=== PATIENT | female | born 1965 | race Caucasian/White ===

== ENCOUNTER 2016-08-14 06:38 | Outpatient (CLI) | payer BC, OTHER | END 2016-08-14 06:39 | disposition home or self-care (01) | LOC: LAB.R 06:38 | PROVIDERS: ATTEND Family Medicine | DX: N39.0 Urinary tract infection, site not specified (principal) | CPT/HCPCS: 87077; 87086 ==

== ENCOUNTER 2016-08-16 12:17 | Outpatient (CLI) | payer BC | END 2016-08-16 12:18 | disposition home or self-care (01) | LOC: LAB 12:17 | PROVIDERS: ATTEND Family Medicine | DX: E55.9 Vitamin D deficiency, unspecified (principal) | CPT/HCPCS: 36415; 82306; 87086 ==

== ENCOUNTER 2016-10-29 12:07 | Outpatient (CLI) | payer BC ==
[2016-10-29 12:19] LABS: BASOPHILS % (AUTO) 0.4 %; EOSINOPHILS # (AUTO) 0.3 10^3/uL (0.0-0.7); EOSINOPHILS % (AUTO) 2.9 %; HCT - HEMATOCRIT 36.1 % (37.0-47.0); LYMPHOCYTES # (AUTO) 2.8 10^3/uL (1.5-3.5); LYMPHOCYTES % (AUTO) 30.3 %; MEAN CORPUSCULAR HEMOGLOBIN 28.4 pg (27.0-31.0); MEAN CORPUSCULAR HGB CONC 33.3 g/dL (32.0-36.0); MEAN CORPUSCULAR VOLUME 85.2 fL (81.0-99.0); MEAN PLATELET VOLUME 7.2 fL (7.9-10.8); MONOCYTES # (AUTO) 0.6 10^3/uL (0.0-1.0); MONOCYTES % (AUTO) 6.5 %; NEUTROPHILS # (AUTO) 5.5 10^3/uL (1.5-6.6); NEUTROPHILS % (AUTO) 59.9 %; NUCLEATED RED BLOOD CELLS AUTO 0.1 /100WBC; RED BLOOD COUNT 4.24 10^6/uL (4.20-5.40); RED CELL DISTRIBUTION WIDTH 14.3 % (12.0-15.0); UNCORRECTED WHITE BLOOD COUNT 9.2 x10^3/uL; WHITE BLOOD COUNT 9.2 x10^3/uL (4.8-10.8)
[2016-10-29 12:36] LABS: ALBUMIN/GLOBULIN RATIO 1.2 (1.0-2.2); BILIRUBIN,TOTAL 0.9 mg/dL (0.2-1.0); CALCIUM 9.8 mg/dL (8.5-10.3); CREATININE 0.9 mg/dL (0.4-1.0); POTASSIUM 4.2 mmol/L (3.5-5.0); TOTAL PROTEIN 7.6 g/dL (6.7-8.2)
== END 2016-10-29 12:08 | disposition home or self-care (01) ==
LOC: LAB 12:07
PROVIDERS: ATTEND Physician Assistant Medical
DX: R11.0 Nausea (principal); R06.02 Shortness of breath
CPT/HCPCS: 36415; 80053; 83690; 84484; 85025; 85379

== ENCOUNTER 2017-01-28 10:05 | Outpatient (CLI) | payer BC ==
[2017-01-28 10:42] LABS: INR 1.5 (0.8-1.2); PT - PROTHROMBIN TIME 16.7 secs (9.9-12.6)
== END 2017-01-28 10:06 | disposition home or self-care (01) ==
LOC: LAB 10:05
PROVIDERS: ATTEND Family Medicine Sports Medicine
DX: I82.432 Acute embolism and thrombosis of left popliteal vein (principal)
CPT/HCPCS: 36415; 85610

== ENCOUNTER 2017-01-31 07:43 | Outpatient (CLI) | payer BC | END 2017-01-31 07:44 | disposition home or self-care (01) | LOC: LAB 07:43 | PROVIDERS: ATTEND Family Medicine Sports Medicine | DX: I82.432 Acute embolism and thrombosis of left popliteal vein (principal) | CPT/HCPCS: 36415; 85610 ==

== ENCOUNTER 2017-02-01 07:47 | Outpatient (CLI) | payer BC ==
[2017-02-01 08:09] LABS: INR 2.1 (0.8-1.2); PT - PROTHROMBIN TIME 22.8 secs (9.9-12.6)
== END 2017-02-01 07:48 | disposition home or self-care (01) ==
LOC: LAB 07:47
PROVIDERS: ATTEND Family Medicine Sports Medicine
DX: I82.432 Acute embolism and thrombosis of left popliteal vein (principal)
CPT/HCPCS: 36415; 85610

== ENCOUNTER 2017-02-04 08:02 | Outpatient (CLI) | payer BC ==
[2017-02-04 09:04] LABS: INR 2.2 (0.8-1.2); PT - PROTHROMBIN TIME 24.4 secs (9.9-12.6)
== END 2017-02-04 08:03 | disposition home or self-care (01) ==
LOC: LAB 08:02
PROVIDERS: ATTEND Family Medicine Sports Medicine
DX: I82.432 Acute embolism and thrombosis of left popliteal vein (principal)
CPT/HCPCS: 36415; 85610

== ENCOUNTER 2017-02-08 07:52 | Outpatient (CLI) | payer BC ==
[2017-02-08 08:31] LABS: INR 2.4 (0.8-1.2); PT - PROTHROMBIN TIME 26.1 secs (9.9-12.6)
== END 2017-02-08 07:53 | disposition home or self-care (01) ==
LOC: LAB 07:52
PROVIDERS: ATTEND Family Medicine Sports Medicine
DX: I82.432 Acute embolism and thrombosis of left popliteal vein (principal)
CPT/HCPCS: 36415; 85610

== ENCOUNTER 2017-02-15 07:44 | Outpatient (CLI) | payer BC ==
[2017-02-15 08:01] LABS: INR 2.4 (0.8-1.2); PT - PROTHROMBIN TIME 26.2 secs (9.9-12.6)
== END 2017-02-15 07:45 | disposition home or self-care (01) ==
LOC: LAB 07:44
PROVIDERS: ATTEND Family Medicine Sports Medicine
DX: I82.432 Acute embolism and thrombosis of left popliteal vein (principal)
CPT/HCPCS: 36415; 85610

== ENCOUNTER 2017-02-18 10:10 | Outpatient (CLI) | payer BC ==
[2017-02-18 10:47] LABS: INR 2.5 (0.8-1.2); PT - PROTHROMBIN TIME 27.6 secs (9.9-12.6)
== END 2017-02-18 10:11 | disposition home or self-care (01) ==
LOC: LAB 10:10
PROVIDERS: ATTEND Family Medicine Sports Medicine
DX: I82.432 Acute embolism and thrombosis of left popliteal vein (principal)
CPT/HCPCS: 36415; 85610

== ENCOUNTER 2017-02-24 10:08 | Outpatient (CLI) | payer BC ==
[2017-02-24 10:31] LABS: INR 1.6 (0.8-1.2)
== END 2017-02-24 10:09 | disposition home or self-care (01) ==
LOC: LAB 10:08
PROVIDERS: ATTEND Family Medicine Sports Medicine
DX: I82.432 Acute embolism and thrombosis of left popliteal vein (principal)
CPT/HCPCS: 36415; 85610

== ENCOUNTER 2017-03-01 10:21 | Outpatient (CLI) | payer BC ==
[2017-03-01 10:55] LABS: INR 2.1 (0.8-1.2)
== END 2017-03-01 10:22 | disposition home or self-care (01) ==
LOC: LAB 10:21
PROVIDERS: ATTEND Family Medicine Sports Medicine
DX: I82.432 Acute embolism and thrombosis of left popliteal vein (principal)
CPT/HCPCS: 36415; 85610

== ENCOUNTER 2017-03-08 07:35 | Outpatient (CLI) | payer BC ==
[2017-03-08 08:09] LABS: INR 1.7 (0.8-1.2); PT - PROTHROMBIN TIME 18.5 secs (9.9-12.6)
== END 2017-03-08 07:36 | disposition home or self-care (01) ==
LOC: LAB 07:35
PROVIDERS: ATTEND Family Medicine Sports Medicine
DX: I82.432 Acute embolism and thrombosis of left popliteal vein (principal)
CPT/HCPCS: 36415; 85610

== ENCOUNTER 2017-03-15 10:39 | Outpatient (CLI) | payer BC ==
[2017-03-15 11:49] LABS: INR 2.1 (0.8-1.2); PT - PROTHROMBIN TIME 22.9 secs (9.9-12.6)
== END 2017-03-15 10:40 | disposition home or self-care (01) ==
LOC: LAB 10:39
PROVIDERS: ATTEND Family Medicine Sports Medicine
DX: I82.432 Acute embolism and thrombosis of left popliteal vein (principal)
CPT/HCPCS: 36415; 85610

== ENCOUNTER 2017-03-29 07:45 | Outpatient (CLI) | payer BC ==
[2017-03-29 08:27] LABS: INR 2.4 (0.8-1.2); PT - PROTHROMBIN TIME 26.3 secs (9.9-12.6)
== END 2017-03-29 07:46 | disposition home or self-care (01) ==
LOC: LAB 07:45
PROVIDERS: ATTEND Family Medicine Sports Medicine
DX: I82.432 Acute embolism and thrombosis of left popliteal vein (principal)
CPT/HCPCS: 36415; 85610

== ENCOUNTER 2017-05-18 11:49 | Outpatient (CLI) | payer BC | END 2017-05-18 11:50 | disposition home or self-care (01) | LOC: LAB 11:49 | PROVIDERS: ATTEND Family Medicine Sports Medicine | DX: I82.432 Acute embolism and thrombosis of left popliteal vein (principal) | CPT/HCPCS: 85610 ==

== ENCOUNTER 2017-05-25 15:15 | Outpatient (CLI) | payer BC | END 2017-05-25 15:16 | disposition home or self-care (01) | LOC: LAB 15:15 | PROVIDERS: ATTEND Family Medicine Sports Medicine | DX: I82.432 Acute embolism and thrombosis of left popliteal vein (principal) | CPT/HCPCS: 85610 ==

== ENCOUNTER 2017-06-01 12:11 | Outpatient (CLI) | payer BC | END 2017-06-01 12:12 | disposition home or self-care (01) | LOC: LAB 12:11 | PROVIDERS: ATTEND Family Medicine Sports Medicine | DX: I82.432 Acute embolism and thrombosis of left popliteal vein (principal) | CPT/HCPCS: 85610 ==

== ENCOUNTER 2017-06-09 16:43 | Outpatient (CLI) | payer BC | END 2017-06-09 16:44 | disposition home or self-care (01) | LOC: LAB 16:43 | PROVIDERS: ATTEND Family Medicine Sports Medicine | DX: I82.432 Acute embolism and thrombosis of left popliteal vein (principal) | CPT/HCPCS: 85610 ==

== ENCOUNTER 2017-06-22 12:11 | Outpatient (CLI) | payer BC | END 2017-06-22 12:12 | disposition home or self-care (01) | LOC: LAB 12:11 | PROVIDERS: ATTEND Family Medicine Sports Medicine | DX: I82.432 Acute embolism and thrombosis of left popliteal vein (principal) | CPT/HCPCS: 85610 ==

== ENCOUNTER 2017-07-11 09:25 | Outpatient (CLI) | payer BC | END 2017-07-11 09:26 | disposition home or self-care (01) | LOC: LAB 09:25 | PROVIDERS: ATTEND Nurse Practitioner Family | DX: I82.432 Acute embolism and thrombosis of left popliteal vein (principal) | CPT/HCPCS: 85610 ==

== ENCOUNTER 2017-07-27 09:37 | Outpatient (CLI) | payer BC | END 2017-07-27 09:38 | disposition home or self-care (01) | LOC: LAB 09:37 | PROVIDERS: ATTEND Nurse Practitioner Family | DX: I82.432 Acute embolism and thrombosis of left popliteal vein (principal) | CPT/HCPCS: 85610 ==

== ENCOUNTER 2017-08-15 10:38 | Outpatient (CLI) | payer BC | END 2017-08-15 10:39 | disposition home or self-care (01) | LOC: LAB 10:38 | PROVIDERS: ATTEND Nurse Practitioner Family | DX: I82.432 Acute embolism and thrombosis of left popliteal vein (principal) | CPT/HCPCS: 85610 ==

== ENCOUNTER 2018-02-07 13:55 | Emergency (ER) | payer OTHER, BC ==
[2018-02-07] MEDS ORDERED: ceFAZolin 1 GM VIAL IM STA (17:03)
[2018-02-07] MEDS ORDERED: TETANUS/DIPHTHERIA/PERTUSSIS 0.5 ML SYRINGE IM ONE (17:03)
[2018-02-07] MEDS ORDERED: ACETAMINOPHEN 325 MG TABLET PO STA (17:14)
--- NOTE | 2018-02-07 17:18 | ED Physician Documentation ---
History of Present Illness - Stated complaint Stated Complaint: L INDEX FINGER INJ - Chief complaint Chief Complaint: Wound - Additonal information Additional information: hx from pt 53 female was working at [employer] facility and got a metal shard through dirty work gloves into L index yesterday removed metal - she thinks none left, cleaned wound carefully but today finger painful and red with small pustule she needle I&D at home s any purulent dc Review of Systems Constitutional: denies: Fever Skin: reports: Other (finger) Musculoskeletal: reports: Other (L index red and swollen) Immunocompromised: denies: Immunocompromised PD PAST MEDICAL HISTORY - Past Medical History Past Medical History: Yes Cardiovascular: Pulmonary embolism Respiratory: Pneumonia Neuro: None Endocrine/Autoimmune: None GI: None PROPERTY MANAGEMENT ASSISTANT: None : None HEENT: None Psych: None Musculoskeletal: Osteoarthritis Derm: None - Past Surgical History Past Surgical History: Yes /PROPERTY MANAGEMENT ASSISTANT: section - Present Medications Home Medications: Ambulatory Orders Medication Instructions Recorded Confirmed Cephalexin [Keflex] 500 mg PO Q6H #28 capsule 02/07/18 oxyCODONE [Roxicodone] 5 mg PO Q4-6H PRN #4 tablet 02/07/18 - Allergies Allergies/Adverse Reactions: Allergies Allergy/AdvReac Type Severity Reaction Status Date / Time No Known Drug Allergies Allergy Verified 02/07/18 14:09 - Social History Does the pt smoke?: No Smoking Status: Former smoker Does the pt drink ETOH?: No Does the pt have substance abuse?: No - Immunizations Immunizations are current?: No Immunizations: TDAP >10years/unknown - POLST Patient has POLST: No PD ED PE NORMAL - Vitals Vital signs reviewed: Yes - Extremities Extremities: Other (L index distal phalange warm red and swollen, no extension past DIP, able to flex ext with minimal discomfort so doubt tenosynovitis) Results - Vitals Vitals: Vital Signs - 24 hr 02/07/18 14:08 Temperature 36.9 C Heart Rate 96 Respiratory 18 Rate Blood Pressure 143/86 H O2 Saturation 99 Oxygen O2 Source Room air - Rads (name of study) finger Radiology: See rad report (sub mm linear opacity c/w FB approx 1 cm deep and just distal to DIP flexor crease) Departure - Departure Disposition: 01 Home, Self Care Clinical Impression: Infected puncture wound of finger Qualifiers: Encounter type: initial encounter Qualified Code(s): S61.239A - Puncture wound without foreign body of unspecified finger without damage to nail, initial encounter Condition: Good Instructions: ED Wound Puncture General Prescriptions: Cephalexin [Keflex] 500 mg PO Q6H #28 capsule oxyCODONE [Roxicodone] 5 mg PO Q4-6H PRN #4 tablet PRN Reason: severe pain only Comments: The xray did show a very small (less than a mm) foreign body in the finger It is too small and too deep to be removed in the ER so i have referred you to orthopedics - if not improving with antibiotics may need to be removed by the specialist Motrin and tylenol for the pain Soak in warm soapy water for 20 minutes at a time Call orthopedics to be seen tomorrow for a recheck unless significantly better - if you can't get into orthopedics come back and see me in the ER again
--- NOTE | 2018-02-07 17:45 | XRAY Report ---
Reason: concern for metal L index Procedure Date: 02/07/2018 Accession Number: [id number] / [id number] Procedure: XR - Finger(s) LT CPT Code: FULL RESULT: EXAM: LEFT SECOND DIGIT RADIOGRAPHY EXAM DATE: 02/07/2018 05:18 PM. CLINICAL HISTORY: Concern for metal L index. COMPARISON: None. TECHNIQUE: 3 views. FINDINGS: Bones: Normal. No fracture or bone lesion. Joints: No subluxation or dislocation. Moderate first carpometacarpal joint arthritis noted. Soft Tissues: Moderate left second finger soft tissue swelling noted. No radiopaque foreign bodies are noted. IMPRESSION: 1. No fracture or malalignment. 2. Moderate left second finger soft tissue swelling noted. No radiopaque foreign bodies are noted. 3. If patient remains symptomatic, recommend follow up in 10-14 days. [facility]
[2018-02-07 18:15] VITALS: BP 140/80
== END 2018-02-07 18:12 | disposition home or self-care (01) ==
LOC: ED 13:55
DX: S61.241A Puncture wound with foreign body of left index finger without damage to nail, initial encounter (principal); L08.9 Local infection of the skin and subcutaneous tissue, unspecified; W26.8XXA Contact with other sharp object(s), not elsewhere classified, initial encounter; W45.8XXA Other foreign body or object entering through skin, initial encounter; Y93.89 Activity, other specified; Y92.63 Factory as the place of occurrence of the external cause; Y99.0 Civilian activity done for income or pay; Z23 Encounter for immunization; Z87.891 Personal history of nicotine dependence
CPT/HCPCS: 1040M; 73140; 90471; 90715; 96372; 99283; A9270

== ENCOUNTER 2020-01-15 14:23 | Outpatient (CLI) | payer BC | END 2020-01-15 14:24 | disposition home or self-care (01) | LOC: LAB 14:23 | PROVIDERS: ATTEND Family Medicine Sports Medicine | DX: I82.419 Acute embolism and thrombosis of unspecified femoral vein (principal) | CPT/HCPCS: 85610 ==

== ENCOUNTER 2020-01-17 10:32 | Outpatient (CLI) | payer BC | END 2020-01-17 10:33 | disposition home or self-care (01) | LOC: LAB 10:32 | PROVIDERS: ATTEND Family Medicine Sports Medicine | DX: I82.462 Acute embolism and thrombosis of left calf muscular vein (principal) | CPT/HCPCS: 85610 ==

== ENCOUNTER 2020-01-18 12:26 | Outpatient (CLI) | payer BC | END 2020-01-18 12:27 | disposition home or self-care (01) | LOC: LAB 12:26 | PROVIDERS: ATTEND Family Medicine Sports Medicine | DX: I82.462 Acute embolism and thrombosis of left calf muscular vein (principal) | CPT/HCPCS: 85610 ==

== ENCOUNTER 2020-01-21 13:42 | Outpatient (CLI) | payer BC | END 2020-01-21 13:43 | disposition home or self-care (01) | LOC: LAB 13:42 | PROVIDERS: ATTEND Family Medicine Sports Medicine | DX: I82.462 Acute embolism and thrombosis of left calf muscular vein (principal) | CPT/HCPCS: 85610 ==

== ENCOUNTER 2020-01-23 11:00 | Outpatient (CLI) | payer BC | END 2020-01-23 11:01 | disposition home or self-care (01) | LOC: LAB 11:00 | PROVIDERS: ATTEND Family Medicine Sports Medicine | DX: I82.462 Acute embolism and thrombosis of left calf muscular vein (principal) | CPT/HCPCS: 85610 ==

== ENCOUNTER 2020-01-25 09:43 | Outpatient (CLI) | payer BC | END 2020-01-25 09:44 | disposition home or self-care (01) | LOC: LAB 09:43 | PROVIDERS: ATTEND Family Medicine Sports Medicine | DX: I82.462 Acute embolism and thrombosis of left calf muscular vein (principal) | CPT/HCPCS: 85610 ==

== ENCOUNTER 2020-01-28 10:09 | Outpatient (CLI) | payer BC | END 2020-01-28 10:10 | disposition home or self-care (01) | LOC: LAB 10:09 | PROVIDERS: ATTEND Family Medicine Sports Medicine | DX: I82.462 Acute embolism and thrombosis of left calf muscular vein (principal) | CPT/HCPCS: 85610 ==

== ENCOUNTER 2020-01-30 09:43 | Outpatient (CLI) | payer BC | END 2020-01-30 09:44 | disposition home or self-care (01) | LOC: LAB 09:43 | PROVIDERS: ATTEND Family Medicine Sports Medicine | DX: I82.462 Acute embolism and thrombosis of left calf muscular vein (principal) | CPT/HCPCS: 85610 ==

== ENCOUNTER 2020-02-01 11:04 | Outpatient (CLI) | payer BC | END 2020-02-01 11:05 | disposition home or self-care (01) | LOC: LAB 11:04 | PROVIDERS: ATTEND Family Medicine Sports Medicine | DX: I82.462 Acute embolism and thrombosis of left calf muscular vein (principal) | CPT/HCPCS: 85610 ==

== ENCOUNTER 2020-02-04 10:34 | Outpatient (CLI) | payer BC | END 2020-02-04 10:35 | disposition home or self-care (01) | LOC: LAB 10:34 | PROVIDERS: ATTEND Family Medicine Sports Medicine | DX: I82.462 Acute embolism and thrombosis of left calf muscular vein (principal) | CPT/HCPCS: 85610 ==

== ENCOUNTER 2020-02-11 10:15 | Outpatient (CLI) | payer BC | END 2020-02-11 10:16 | disposition home or self-care (01) | LOC: LAB 10:15 | PROVIDERS: ATTEND Family Medicine Sports Medicine | DX: I82.462 Acute embolism and thrombosis of left calf muscular vein (principal) | CPT/HCPCS: 85610 ==

== ENCOUNTER 2020-02-14 10:35 | Outpatient (CLI) | payer BC | END 2020-02-14 10:36 | disposition home or self-care (01) | LOC: LAB 10:35 | PROVIDERS: ATTEND Family Medicine Sports Medicine | DX: I82.462 Acute embolism and thrombosis of left calf muscular vein (principal) | CPT/HCPCS: 85610 ==

== ENCOUNTER 2020-02-20 09:10 | Outpatient (CLI) | payer BC | END 2020-02-20 09:11 | disposition home or self-care (01) | LOC: LAB 09:10 | PROVIDERS: ATTEND Family Medicine Sports Medicine | DX: I82.462 Acute embolism and thrombosis of left calf muscular vein (principal) | CPT/HCPCS: 85610 ==

== ENCOUNTER 2020-02-28 12:30 | Outpatient (CLI) | payer BC | END 2020-02-28 12:31 | disposition home or self-care (01) | LOC: LAB 12:30 | PROVIDERS: ATTEND Family Medicine Sports Medicine | DX: I82.462 Acute embolism and thrombosis of left calf muscular vein (principal) | CPT/HCPCS: 85610 ==

== ENCOUNTER 2020-03-04 11:07 | Outpatient (CLI) | payer BC | END 2020-03-04 11:08 | disposition home or self-care (01) | LOC: LAB 11:07 | PROVIDERS: ATTEND Family Medicine Sports Medicine | DX: I82.462 Acute embolism and thrombosis of left calf muscular vein (principal) | CPT/HCPCS: 85610 ==

== ENCOUNTER 2020-03-11 10:10 | Outpatient (CLI) | payer BC | END 2020-03-11 10:11 | disposition home or self-care (01) | LOC: LAB 10:10 | PROVIDERS: ATTEND Family Medicine Sports Medicine | DX: I82.462 Acute embolism and thrombosis of left calf muscular vein (principal) | CPT/HCPCS: 85610 ==

== ENCOUNTER 2020-03-18 10:39 | Outpatient (CLI) | payer BC | END 2020-03-18 10:40 | disposition home or self-care (01) | LOC: LAB 10:39 | PROVIDERS: ATTEND Family Medicine Sports Medicine | DX: I82.462 Acute embolism and thrombosis of left calf muscular vein (principal) | CPT/HCPCS: 85610 ==

== ENCOUNTER 2020-04-02 08:00 | Outpatient (CLI) | payer BC | END 2020-04-02 23:59 | disposition home or self-care (01) | LOC: LAB 08:00 | PROVIDERS: ATTEND Family Medicine Sports Medicine | DX: I82.462 Acute embolism and thrombosis of left calf muscular vein (principal) | CPT/HCPCS: 85610 ==

== ENCOUNTER 2020-04-22 10:41 | Outpatient (CLI) | payer BC | END 2020-04-22 10:42 | disposition home or self-care (01) | LOC: LAB 10:41 | PROVIDERS: ATTEND Family Medicine Sports Medicine | DX: I82.462 Acute embolism and thrombosis of left calf muscular vein (principal) | CPT/HCPCS: 85610 ==

== ENCOUNTER 2020-05-14 11:55 | Outpatient (CLI) | payer BC ==
[2020-05-14 12:24] LABS: INR 1.5 (0.8-1.2); PT - PROTHROMBIN TIME 16.9 secs (9.9-12.6)
== END 2020-05-14 11:56 | disposition home or self-care (01) ==
LOC: LAB 11:55
PROVIDERS: ATTEND Family Medicine Sports Medicine
DX: I82.462 Acute embolism and thrombosis of left calf muscular vein (principal)
CPT/HCPCS: 36415; 85610

== ENCOUNTER 2020-05-27 12:02 | Outpatient (CLI) | payer BC ==
[2020-05-27 12:40] LABS: INR 3.2 (0.8-1.2); PT - PROTHROMBIN TIME 33.3 secs (9.9-12.6)
== END 2020-05-27 12:03 | disposition home or self-care (01) ==
LOC: LAB 12:02
PROVIDERS: ATTEND Family Medicine Sports Medicine
DX: I82.462 Acute embolism and thrombosis of left calf muscular vein (principal)
CPT/HCPCS: 85610

== ENCOUNTER 2020-06-17 08:00 | Outpatient (CLI) | payer BC | END 2020-06-17 23:59 | disposition home or self-care (01) | LOC: LAB 08:00 | PROVIDERS: ATTEND Family Medicine Sports Medicine | DX: I82.462 Acute embolism and thrombosis of left calf muscular vein (principal) | CPT/HCPCS: 85610 ==

== ENCOUNTER 2020-07-02 08:00 | Outpatient (CLI) | payer BC | END 2020-07-02 23:59 | disposition home or self-care (01) | LOC: LAB 08:00 | PROVIDERS: ATTEND Family Medicine Sports Medicine | DX: I82.462 Acute embolism and thrombosis of left calf muscular vein (principal) | CPT/HCPCS: 36416; 85610 ==

== ENCOUNTER 2020-07-18 11:08 | Outpatient (CLI) | payer BC | END 2020-07-18 11:09 | disposition home or self-care (01) | LOC: LAB 11:08 | PROVIDERS: ATTEND Family Medicine Sports Medicine | DX: I82.462 Acute embolism and thrombosis of left calf muscular vein (principal) | CPT/HCPCS: 36416; 85610 ==

== ENCOUNTER 2020-08-06 08:21 | Outpatient (CLI) | payer BC | END 2020-08-06 08:22 | disposition home or self-care (01) | LOC: LAB 08:21 | PROVIDERS: ATTEND Family Medicine Sports Medicine | DX: I82.462 Acute embolism and thrombosis of left calf muscular vein (principal) | CPT/HCPCS: 36416; 85610 ==

== ENCOUNTER 2020-09-15 10:48 | Outpatient (CLI) | payer BC | END 2020-09-15 10:49 | disposition home or self-care (01) | LOC: LAB 10:48 | PROVIDERS: ATTEND Family Medicine Sports Medicine | DX: I82.462 Acute embolism and thrombosis of left calf muscular vein (principal) | CPT/HCPCS: 36416; 85610 ==

== ENCOUNTER 2020-09-23 11:30 | Outpatient (CLI) | payer BC | END 2020-09-23 11:31 | disposition home or self-care (01) | LOC: LAB 11:30 | PROVIDERS: ATTEND Family Medicine Sports Medicine | DX: I82.462 Acute embolism and thrombosis of left calf muscular vein (principal) | CPT/HCPCS: 36416; 85610 ==

== ENCOUNTER 2020-10-01 10:29 | Outpatient (CLI) | payer BC | END 2020-10-01 10:30 | disposition home or self-care (01) | LOC: LAB 10:29 | PROVIDERS: ATTEND Family Medicine Sports Medicine | DX: I82.462 Acute embolism and thrombosis of left calf muscular vein (principal) | CPT/HCPCS: 36416; 85610 ==

== ENCOUNTER 2020-10-14 10:06 | Outpatient (CLI) | payer BC | END 2020-10-14 10:07 | disposition home or self-care (01) | LOC: LAB 10:06 | PROVIDERS: ATTEND Family Medicine Sports Medicine | DX: I82.462 Acute embolism and thrombosis of left calf muscular vein (principal) | CPT/HCPCS: 36416; 85610 ==

== ENCOUNTER 2020-11-10 10:43 | Outpatient (CLI) | payer BC | END 2020-11-10 23:59 | disposition home or self-care (01) | LOC: LAB 10:43 | PROVIDERS: ATTEND Family Medicine Sports Medicine | DX: I82.462 Acute embolism and thrombosis of left calf muscular vein (principal) | CPT/HCPCS: 85610 ==

== ENCOUNTER 2020-11-25 13:34 | Outpatient (CLI) | payer BC | END 2020-11-25 13:35 | disposition home or self-care (01) | LOC: LAB 13:34 | PROVIDERS: ATTEND Family Medicine Sports Medicine | DX: I82.462 Acute embolism and thrombosis of left calf muscular vein (principal) | CPT/HCPCS: 36416; 85610 ==

== ENCOUNTER 2020-12-08 12:12 | Outpatient (CLI) | payer BC | END 2020-12-08 12:13 | disposition home or self-care (01) | LOC: LAB 12:12 | PROVIDERS: ATTEND Family Medicine Sports Medicine | DX: I82.462 Acute embolism and thrombosis of left calf muscular vein (principal) | CPT/HCPCS: 36416; 85610 ==

== ENCOUNTER 2020-12-23 16:40 | Outpatient (CLI) | payer BC | END 2020-12-23 16:41 | disposition home or self-care (01) | LOC: LAB 16:40 | PROVIDERS: ATTEND Family Medicine Sports Medicine | DX: I82.462 Acute embolism and thrombosis of left calf muscular vein (principal) | CPT/HCPCS: 36416; 85610 ==

== ENCOUNTER 2021-01-13 10:54 | Outpatient (CLI) | payer BC | END 2021-01-13 10:55 | disposition home or self-care (01) | LOC: LAB 10:54 | PROVIDERS: ATTEND Family Medicine Sports Medicine | DX: I82.462 Acute embolism and thrombosis of left calf muscular vein (principal) | CPT/HCPCS: 36416; 85610 ==

== ENCOUNTER 2021-02-17 12:20 | Outpatient (CLI) | payer BC | END 2021-02-17 12:21 | disposition home or self-care (01) | LOC: LAB 12:20 | PROVIDERS: ATTEND Family Medicine Sports Medicine | DX: I82.462 Acute embolism and thrombosis of left calf muscular vein (principal) | CPT/HCPCS: 36416; 85610 ==

== ENCOUNTER 2021-04-07 11:45 | Outpatient (CLI) | payer BC | END 2021-04-07 11:46 | disposition home or self-care (01) | LOC: LAB 11:45 | PROVIDERS: ATTEND Family Medicine Sports Medicine | DX: I82.462 Acute embolism and thrombosis of left calf muscular vein (principal) | CPT/HCPCS: 36416; 85610 ==